=== PATIENT | male | born 1980 | race Caucasian/White ===

== ENCOUNTER 2017-06-14 20:41 | Emergency (ER) | payer BC ==
--- NOTE | 2017-06-14 21:28 | Emergency Department Record ---
History of Present Illness - General Chief complaint: Lower Extremity Pain Stated complaint: KNOT ON LT ANKLE/PAINFUL Time Seen by Provider: 06/14/17 21:13 Source: Patient Mode of Arrival: Ambulatory Limitations: No limitations - History of Present Illness Initial comments: 37 year old male presents with lateral left ankle pain today. He noted a small swollen area. No specific injury. No warmth, redness. Skin is intact. No achilles pain. No history of joint or orthopedic issues of this joint. Onset/Timin -: Hour(s) Location: Left, Ankle, Foot -: Yes Arthralgia Severity scale (1-10): 5 Improves with: Immobilization, Rest Worsens with: Weight bearing Associated Symptoms: Denies other symptoms - Related Data Allergies Allergy/AdvReac Type Severity Reaction Status Date / Time Penicillins Allergy PT UNSURE Verified 06/14/17 20:58 OF REACTION Travel Screening - Travel/Exposure Within Last 30 Days Have you traveled within the last 30 days?: No - Travel/Exposure Within Last Year Have you traveled outside the [place] in the last year?: No - Additonal Travel Details Have you been exposed to anyone with a communicable illness?: No - Travel Symptoms Symptom Screening: None Review of Systems Constitutional: Denies: Chills, Fever, Malaise Eyes: Denies: Eye pain, Vision change ENT: Denies: Congestion, Ear pain, Throat pain Respiratory: Denies: Cough Cardiovascular: Denies: Chest pain, Syncope Endocrine: Denies: Fatigue Gastrointestinal: Denies: Abdominal pain, Diarrhea, Nausea, Vomiting Genitourinary: Denies: Dysuria, Frequency Musculoskeletal: Reports: As per HPI, Arthralgia Skin: Denies: Bruising, Change in color, Pruritus, Rash Neurological: Denies: Confusion, Headache Psychiatric: Denies: Anxiety Hematological/Lymphatic: Denies: Easy bleeding, Easy bruising, Swollen glands Past Medical History - SOCIAL HISTORY Smoking Status: Current every day smoker Alcohol Use: Occasional Alcohol Use Comment: BEER Drug Use: None - RESPIRATORY Hx Respiratory Disorders: No - CARDIOVASCULAR Hx Cardio Disorders: No - NEURO Hx Neuro Disorders: No - GI Hx GI Disorders: No - Hx Genitourinary Disorders: No - ENDOCRINE Hx Endocrine Disorders: No - MUSCULOSKELETAL Hx Musculoskeletal Disorders: No - PSYCH Hx Psych Problems: No - HEMATOLOGY/ONCOLOGY Hx Hematology/Oncology Disorders: No Family Medical History Any Significant Family History?: No Physical Exam - General General Appearance: Alert, Oriented x3, Cooperative, No acute distress Limitations: No limitations - Head Head exam: Atraumatic, Normal inspection - Eye Eye exam: Normal appearance - ENT ENT exam: Normal exam Ear exam: Normal external inspection Nasal Exam: Normal inspection Mouth exam: Normal external inspection - Neck Neck exam: Normal inspection - Cardiovascular Peripheral Pulses: 2+: Dorsalis Pedis (L) - Extremities Extremities exam: Normal inspection, Normal capillary refill Image of Feet: 1 - just distal and anterior to the tip of the lateral malleolus there is slight STS ,no warmth or redness, intact skin. full ROM - Neurological Neurological exam: Alert, Oriented X3 - Psychiatric Psychiatric exam: Normal affect, Normal mood - Skin Skin exam: Dry, Intact, Normal color, Warm. negative: Cyanosis, Diaphoretic, Erythema, Mottled, Pallor, Petechiae, Rash, Urticaria, Vesicles Course Vital Signs 06/14/17 20:54 Temperature 97.9 F Pulse Rate 88 Respiratory 20 Rate Blood Pressure 134/84 Pulse Ox 99 - Reevaluation(s) Reevaluation #1: 06/14/17 21:58 XR was negative for any acute maynor abnormality. Lateral STS. 06/15/17 00:27 Possible tendonitis vs bursitis Disposition Disposition: Discharge Clinical Impression: Left ankle tendonitis Disposition: Home, Self-Care Condition: (1) Good Instructions: Tendinitis (ED) Additional Instructions: Ice the tender swollen area 3 times daily Try to limit walking and standing Take motrin as needed for pain If worse you may need referral to your orthopedic doctor for evaluation Forms: Patient Portal Access Time of Disposition: 22:00 Quality - Quality Measures Quality Measures: N/A - Blood Pressure Screening Does Patient Have Any of the Following: No Blood Pressure Classification: Pre-Hypertensive BP Reading Systolic Measurement: 134 Diastolic Measurement: 84 Screening for High Blood Pressure: < Pre-Hypertensive BP, F/U Documented > [ [id number]] Pre-Hypertensive Follow-up Interventions: Referral to alternative/primary care provider.
--- NOTE | 2017-06-16 08:55 | RADIOLOGY REPORT ---
EXAM: LEFT ANKLE, THREE VIEWS HISTORY: PAIN AND SWELLING. TECHNIQUE: Three views of the left ankle were obtained. Comparison: None. FINDINGS: Tiny well corticated fragment inferior to the medial malleolus. No acute fractures are identified. There is mild diffuse soft tissue swelling. IMPRESSION: NO EVIDENCE OF ACUTE FRACTURE OF THE LEFT ANKLE. SOFT TISSUE SWELLING IS PRESENT. JOB NUMBER: [id number] MTDD
== END 2017-06-14 22:04 | disposition home or self-care (01) ==
LOC: ER 20:41
DX: M77.52 Other enthesopathy of left foot and ankle (principal); F17.210 Nicotine dependence, cigarettes, uncomplicated
CPT/HCPCS: 99283